=== PATIENT | female | born 1950 | race African-American/Black ===

== ENCOUNTER → 2019-10-15 | Outpatient (CLI) | payer OTHER | LOC: ULTRA 09:47 | DX: E04.2 Nontoxic multinodular goiter (principal); R59.0 Localized enlarged lymph nodes ==

== ENCOUNTER → 2020-06-29 | Outpatient (CLI) | payer OTHER ==
--- NOTE | 2020-06-30 17:06 | PATH ---
[facility] [place] [address] PATHOLOGY RPT PROCEDURE Name: DANIEL MACIEL Room #: REG [facility]#: [id number] Admission: 06/29/20 Date of : 52 Discharge: Report #: [id number] Path Case #: [id number] Note [facility] Accession Number: [id number] TESTS RESULT FLAG UNITS REF RANGE LAB Clinician Provided Cytology Information No. of containers..01 Other (Miscellaneous) Source: LT SUPERIOR THYROID DIAGNOSIS: 02 LEFT SUPERIOR THYROID NEGATIVE FOR MALIGNANT EPITHELIAL CELLS. BETHESDA CATEGORY II. SPECIMEN CONSISTS OF GROUPS OF FOLLICULAR CELLS, HEMOSIDERIN-LADEN MACROPHAGES, COLLOID, AND BLOOD. THIS PATTERN IS COMPATIBLE WITH A FOLLICULAR NODULE. THIS INTERPRETATION INCLUDES EVALUATION OF A CELL BLOCK. NEGATIVE FOR NUCLEAR FEATURES OF PAPILLARY THYROID CARCINOMA. Comment: Examination shows scant to rare groups of follicular cells in a background with watery colloid. Findings are suggestive of a follicular lesion, most likely an adenomatoid nodule. 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 Pathologist ICD10: 02 E04.1 Signed out by: Vanessa Bennett MD, Pathologist NPI- [id number] Performed by: Sheba Liu, News Camera Person (ROBERT) Gross description: 01 25ML, CLEAR RED, 3FX 3AD /LCS 06/29/2020 1747 Local FLAG LEGEND: L-Low Normal,H-High Normal,LL-Alert Low,HH-Alert High <-Panic Low,>-Panic High,A-Abnormal,AA-Critical Abnormal Performed at: 01 [facility] [address] [place] [address] Waylon Bravo MD, [address] [address] Vanessa Bennett MD, Specimen Comment: A courtesy copy of this report has been sent to [phone] Specimen Comment: [id number] [place] [address] PATHOLOGY RPT PROCEDURE Name: DANIEL MACIEL Flory Room #: REG [facility]#: [id number] Admission: 06/29/20 Date of : 52 Discharge: Report #: [id number] Path Case #: [id number] Specimen Comment: Report sent to DR DAVILA Performed at: 01 [facility] [address] [place] [address] [address], [place], [place] [id number] MD Waylon Bravo MD Phone: [phone]
--- NOTE | 2020-06-30 17:06 | PATH ---
[facility] [address] [place] [address] PATHOLOGY RPT PROCEDURE Name: DANIEL MACIEL Room #: REG [facility]#: [id number] Admission: 06/29/20 Date of : 52 Discharge: Report #: [id number] Path Case #: [id number] Note [facility] Accession Number: [id number] TESTS RESULT FLAG UNITS REF RANGE LAB Clinician Provided Cytology Information No. of containers..01 Other (Miscellaneous) Source: 01 RT INFERIOR THYROID DIAGNOSIS: 02 RIGHT INFERIOR THYROID NEGATIVE FOR MALIGNANT EPITHELIAL CELLS. BETHESDA CATEGORY II. SPECIMEN CONSISTS OF GROUPS OF FOLLICULAR CELLS, HEMOSIDERIN-LADEN MACROPHAGES, COLLOID, AND BLOOD. THIS PATTERN IS COMPATIBLE WITH A MIXED-FOLLICULAR NODULE. THIS INTERPRETATION INCLUDES EVALUATION OF A CELL BLOCK. NEGATIVE FOR NUCLEAR FEATURES OF PAPILLARY THYROID CARCINOMA. Comment: Examination shows groups of macro and microfollicles in a background of watery and focal dense colloid. Findings are suggestive of a mixed macro and microfollicular lesion. 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 Correlate clinically and follow-up as indicated. Pathologist ICD10: 02 E04.1 Signed out by: 02 Vanessa Bennett MD, Pathologist NPI- [id number] Performed by: Sheba Liu, Slubber Machine Operator (ASCP) Gross description: 01 25ML, CLEAR RED, 3FX 3AD /LCS 06/29/2020 1749 Local FLAG LEGEND: L-Low Normal,H-High Normal,LL-Alert Low,HH-Alert High <-Panic Low,>-Panic High,A-Abnormal,AA-Critical Abnormal Performed at: 01 [facility] [address] [place] [address] Waylon Bravo MD, 02 [facility] [address] [address] Vanessa Bennett MD, Specimen Comment: [id number] Performed at: [address] [address] PATHOLOGY RPT PROCEDURE Name: DANIEL MACIEL Room #: JOE [facility]#: [id number] Admission: 06/29/20 Date of : 52 Discharge: Report #: [id number] Path Case #: [id number] [facility] [address], [place], [place] [id number] MD Waylon Bravo MD Phone: [phone]
== END | disposition home or self-care (01) ==
LOC: ULTRA 09:44
PROVIDERS: ATTEND Internal Medicine
DX: E04.1 Nontoxic single thyroid nodule (principal)